=== PATIENT | female | born 1980 ===

== ENCOUNTER 2023-09-23 23:42 | Emergency (ER) | payer OTHER, SELFPAY ==
[2023-09-23 23:53] VITALS: BP 106/76
[2023-09-24 00:21] VITALS: BMI 20.1
[2023-09-24] MEDS: NSS 500 IV (00:25)
[2023-09-24] MEDS: DECADRON 10 MG IV (00:26)
[2023-09-24] MEDS: PEPCID 20 MG IV (00:26)
--- NOTE | 2023-09-24 00:57 | ED.GENMED ---
History of Present Illness
General
Chief Complaint: Allergic Reaction
Source: patient
Exam Limitations: none
Time Seen by Provider: 09/24/23 00:04
Nursing documentation reviewed up to this point in time: agreed with
Travel History
Have you had any contact with someone who has COVID-19?: No
Do you have any symptoms of coronavirus? Fever > 100 degrees, chills, cough, shortness of breath, sore throat, loss of taste or smell, muscle aches, or headache?: No
History of Present Illness
History of Present Illness:
Patient currently on day 3 of Bactrim secondary to UTI, presents ED secondary to sudden onset of diffuse itchy rash starting at 5 PM. Patient has taken multiple doses of Benadryl, without significant improvement symptoms. Denies chest pain or
shortness of breath. Denies headache. Denies dizziness. Denies nausea or vomiting. Denies difficulty with swallowing. Denies change in voice. Of note, patient reports itchy rash noted over her back recently, which resolved with 1 dose of
Benadryl.
Review of Systems
Review of Systems
Allergies reviewed?: Yes
All Other Systems: ROS reviewed and negative except as documented in HPI and ROS
Constitutional: Reports no symptoms
EENT: Reports no symptoms
Respiratory: Reports no symptoms; Denies trouble breathing
Cardiac: Reports no symptoms; Denies chest pain or palpitations
ABD/GI: Reports no symptoms; Denies nausea or vomiting
Musculoskeletal: Reports no symptoms
Skin: Reports itching and rash
Neurological: Reports no symptoms
Phy Exam
Physical Exam
Physical Exam:
Physical Exam
General: mild distress, not acutely ill. afebrile
Head: nc/at. eomi
Neck: supple. no meningeal signs. normal posterior pharynx
Heart: s1/s2 regular rate and rhythm, no murmur. equal radial pulses.
Lungs: no acute respiratory distress. clear bilaterally
Abdomen: normal bowel sounds. not tender.
Neuro: alert and oriented. no focal neurological deficits
Skin: diffuse hives noted.
Psychiatric: well kept. interactive and cooperative
Extremities: no edema.
Course
Orders/Labs/Results
Orders:
Orders
09/24/23 00:13
0.9% Sodium Chloride 500 ml [Nss] 500 ml IV BOLUS
Dexamethasone Sod Phosphate [Decadron] 10 mg IV NOW STA
Famotidine [Pepcid] 20 mg IV NOW STA
Vital Signs
Initial and Last Documented VS:
Initial Vital Signs
Temp Pulse Resp BP Pulse Ox
97.8 F 76 18 106/76 98
09/23/23 23:53 09/23/23 23:53 09/23/23 23:53 09/23/23 23:53 09/23/23 23:53
Last Documented Vital Signs
Temp Pulse Resp BP Pulse Ox
98.3 F 64 16 92/58 100
09/24/23 01:17 09/24/23 01:07 09/24/23 01:07 09/24/23 01:07 09/24/23 01:07
MDM/Problems Addressed
MDM/Problems Addressed:
Patient with significant improvement in symptoms after treatment. History and exam consistent with allergic reaction, potential reaction to Bactrim. Different antibiotics already prescribed by urgent care center, which she will start tomorrow.
Patient otherwise is afebrile, hemodynamically stable, and is without any distress, at time of discharge to the care of her family.
*Critical Care Note
Total Time (30-74mins, 75-104mins- exclusive of procedures): Not Applicable
ED Attending Note
-
Portions of this chart may have been created with voice recognition software.� Occasional wrong word or��sound alike� substitutions may have occurred due to the inherent limitations of voice recognition software.
Discharge Plan
Departure
Patient Disposition: Home (Routine Discharge)
Date of Disposition: 09/24/23
Time of Disposition: 01:09
Patient with high blood pressure during this ER visit?: No
Discharge Problem:
Allergic reaction
Instructions: Allergic Reaction ED
Prescriptions:
New
dexamethasone 2 mg tablet
10 mg PO DAILY 1 Days Qty: 5 0RF
Referrals:
Carlos Phipps MD [Family Provider] -
Activity Restrictions/Additional Instructions:
As discussed, please follow-up with your primary care physician and/or electronic publishing specialist with any further concerns.
Interventions
Interventions:
*Risk Screen - Suicide Last Done: 09/23/23 23:53
*General Assessment Last Done: 09/24/23 00:10
*Neglect/Abuse Screening Last Done: 09/23/23 23:53
ED- Fall Risk Assessment Last Done: 09/24/23 00:10
*Nursing Disposition Last Done: 09/24/23 01:17
ED- Cardiac Assessment Last Done: 09/24/23 00:10
ED- Pulmonary Assessment Last Done: 09/24/23 00:10
ED-Skin Assessment Last Done: 09/24/23 00:10
Discharge Date and Time
Discharge Date/Time: 09/24/23 01:17
[2023-09-24 01:07] VITALS: BP 92/58
== END 2023-09-24 01:17 | disposition home or self-care (01) ==
LOC: EMR 23:42
PROVIDERS: EMERGENCY PHYSICIAN Emergency Medicine; FAMILY PHYSICIAN Internal Medicine
DX: T78.40XA Allergy, unspecified, initial encounter (principal); R21 Rash and other nonspecific skin eruption; L29.9 Pruritus, unspecified; N39.0 Urinary tract infection, site not specified; Z86.16 Personal history of COVID-19
CPT/HCPCS: 99283